=== PATIENT | female | born 1955 | race Caucasian/White ===

== ENCOUNTER 2018-03-11 02:20 | Outpatient (CLI) | payer OTHER, SELFPAY ==
[2018-03-11 12:55] LABS: HCT 42.4 % (36.0-46.0); HGB 14.2 g/dL (12.0-15.5); Mean Corp. HGB Concentration 33.5 g/dL (32.0-36.0); Mean Corpuscular Volume 98.6 fL (80-95); Mean Platelet Volume 9.7 fL (8.0-11.0); Platelet Count 283 x1000/uL (130-400); RBC Distribution Width 12.9 % (11.7-14.6); White Blood Cell Count 7.23 k/cumm (4.4-10.8)
[2018-03-11 13:24] LABS: COMMENT (LAB VIEW ONLY) 149.29 mg/dL
[2018-03-11 13:34] LABS: ALT 53 U/L (12-78); AST 43 U/L (15-37); Albumin 3.6 g/dL (3.4-5.0); Alkaline Phosphatase 108 U/L (46-116); Anion Gap 12.9 mmol/L (3-11); BUN 17 mg/dL (7-18); Bilirubin, Total 0.6 mg/dL (0.2-1.0); CO2 24.1 mmol/L (21.0-32.0); CREATININE 1.19 mg/dL (0.55-1.02); Calcium 9.2 mg/dL (8.5-10.1); Chloride 101 mmol/L (98-107); Cholesterol 304 mg/dL (50-200); Estimated GFR 45.81 (mL/min/1.73m2); Ferritin 200 ng/mL (8-388); Glucose 145 mg/dL (70-100); HDL Cholesterol 36 mg/dL (40-60); LDL CHOLESTEROL 232 mg/dL (<100); Potassium 4.6 mmol/L (3.5-5.1); Sodium 138 mmol/L (136-145); TSH (W/Ref FT4) 2.45 uIU/mL (0.358-3.74); Total Protein 7.2 g/dL (6.4-8.2); Triglyceride 165 mg/dL (30-150)
[2018-03-11 14:02] LABS: Hemoglobin A1C 6.3 % (4.5-6.2)
== END 2018-03-11 02:40 ==
LOC: LOS 02:20
PROVIDERS: PCP Family Medicine; Visit Provider Family Medicine
DX: E11.9 Type 2 diabetes mellitus without complications (principal); E78.5 Hyperlipidemia, unspecified; I10 Essential (primary) hypertension; R79.89 Other specified abnormal findings of blood chemistry
CPT/HCPCS: 36415; 80053; 80061; 83721; 85027; 82043; 82570; 82728; 83036; 84443

== ENCOUNTER 2018-03-11 08:18 | Outpatient (CLI) | payer OTHER, SELFPAY ==
--- NOTE | 2018-03-11 08:48 | DI.US_ITS ---
SYMPTOMS/DIAGNOSIS: HEMOCHROMATOSIS, E83.119, ELEVATED FERRITIN, R79.89, ALCOHOLISM ABDOMINAL ULTRASOUND: The liver appears within normal limits in size with a mildly heterogenous echotexture. No focal lesion identified. Note is made of cholelithiasis with multiple small mobile gallstones. No gallbladder wall thickening or biliary dilatation identified. The pancreas is poorly visualized. The kidneys are unremarkable in appearance except for small incidental bilateral renal cysts. No evidence of hydronephrosis or nephrolithiasis. CONCLUSION: Cholelithiasis, no other significant findings.
== END 2018-03-11 08:38 ==
PROVIDERS: PCP Family Medicine; Visit Provider Family Medicine
DX: E83.119 Hemochromatosis, unspecified (principal); R79.89 Other specified abnormal findings of blood chemistry; F10.20 Alcohol dependence, uncomplicated; K80.20 Calculus of gallbladder without cholecystitis without obstruction
CPT/HCPCS: 76700

== ENCOUNTER 2018-05-20 02:32 | Outpatient (CLI) | payer OTHER, SELFPAY ==
[2018-05-20 13:08] LABS: HGB 14.3 g/dL (12.0-15.5); Mean Corpuscular Hemoglobin 32.7 pg (27.0-33.0); Mean Corpuscular Volume 96.1 fL (80-95); Mean Platelet Volume 9.9 fL (8.0-11.0); Platelet Count 175 x1000/uL (130-400); RBC 4.37 m/cumm (4.00-5.20); RBC Distribution Width 13.7 % (11.7-14.6); White Blood Cell Count 4.86 k/cumm (4.4-10.8)
[2018-05-20 13:17] LABS: Hemoglobin A1C 6.4 % (4.5-6.2)
[2018-05-20 13:58] LABS: ALT 82 U/L (12-78); AST 100 U/L (15-37); Albumin 3.9 g/dL (3.4-5.0); Alkaline Phosphatase 73 U/L (46-116); Anion Gap 13.7 mmol/L (3-11); BUN 29 mg/dL (7-18); Bilirubin, Total 0.5 mg/dL (0.2-1.0); CO2 23.3 mmol/L (21.0-32.0); CREATININE 1.28 mg/dL (0.55-1.02); Calcium 9.7 mg/dL (8.5-10.1); Chloride 98 mmol/L (98-107); Estimated GFR 42.12 (mL/min/1.73m2); GGT 309 U/L (5-55); Glucose 158 mg/dL (70-100); Potassium 4.1 mmol/L (3.5-5.1); Sodium 135 mmol/L (136-145); Total Protein 7.4 g/dL (6.4-8.2)
== END 2018-05-20 02:52 ==
PROVIDERS: PCP Family Medicine; Visit Provider Family Medicine
DX: I10 Essential (primary) hypertension (principal); E78.5 Hyperlipidemia, unspecified; E11.9 Type 2 diabetes mellitus without complications
CPT/HCPCS: 36415; 80053; 85027; 82977; 83036

== ENCOUNTER 2018-06-06 00:23 | Outpatient (CLI) | payer OTHER, SELFPAY ==
--- NOTE | 2018-06-06 12:24 | DI.MAMMO_ITS ---
SYMPTOMS/DIAGNOSIS: SCREENING, Z12.31 MAMMOGRAMS: Mammograms were interpreted according to the usual protocol including computer analysis with CAD system, tomosynthesis and C view imaging. The breast tissue is primarily of fatty radiodensity. There is no mass. There are no suspicious calcifications. Small nodular densities appear stable when compared with the previous images. SUMMARY: No evidence of malignancy, category 1. Yearly screening mammography is recommended. Breast density category A. MQSA ASSESSMENT OF FINDINGS: Negative. Category 1. Patient will receive a letter notifying them of these results. BI-RAD category A. The breasts are almost entirely fatty.
== END 2018-06-06 00:43 ==
PROVIDERS: PCP Family Medicine; Visit Provider Family Medicine
DX: Z12.31 Encounter for screening mammogram for malignant neoplasm of breast (principal)
CPT/HCPCS: 77063; 77067

== ENCOUNTER 2018-10-09 01:30 | Outpatient (CLI) | payer OTHER, SELFPAY ==
[2018-10-09 11:05] LABS: HCT 39.9 % (36.0-46.0); HGB 14.2 g/dL (12.0-15.5); Mean Corp. HGB Concentration 35.6 g/dL (32.0-36.0); Mean Corpuscular Hemoglobin 32.3 pg (27.0-33.0); Mean Corpuscular Volume 90.9 fL (80-95); Mean Platelet Volume 9.5 fL (8.0-11.0); Platelet Count 220 x1000/uL (130-400); RBC 4.39 m/cumm (4.00-5.20); RBC Distribution Width 12.5 % (11.7-14.6); White Blood Cell Count 6.27 k/cumm (4.4-10.8)
[2018-10-09 11:16] LABS: Bilirubin Negative (Negative); Blood Negative (Negative); Clarity Clear; Glucose Negative (Negative); Ketones Negative (Negative); Leukocyte Esterase Negative (Negative); Nitrite Negative (Negative); Specific Gravity 1.015 (1.005-1.025); Urobilinogen 0.2 EU/dL (Up TO 0.2); pH 6.5 (5-8)
[2018-10-09 12:03] LABS: ALT 27 U/L (12-78); AST 21 U/L (15-37); Albumin 3.9 g/dL (3.4-5.0); Alkaline Phosphatase 77 U/L (46-116); Anion Gap 11.1 mmol/L (3-11); BUN 19 mg/dL (7-18); Bilirubin, Total 0.4 mg/dL (0.2-1.0); CO2 24.9 mmol/L (21.0-32.0); CREATININE 1.07 mg/dL (0.55-1.02); Chloride 101 mmol/L (98-107); Cholesterol 289 mg/dL (50-200); Estimated GFR 51.63 (mL/min/1.73m2); Ferritin 169 ng/mL (8-388); GGT 93 U/L (5-55); Glucose 117 mg/dL (70-100); HDL Cholesterol 41 mg/dL (40-60); LDL CHOLESTEROL 217 mg/dL (<100); Potassium 3.8 mmol/L (3.5-5.1); Sodium 137 mmol/L (136-145); Total Protein 7.3 g/dL (6.4-8.2); Triglyceride 105 mg/dL (30-150)
[2018-10-09 15:23] LABS: Iron 116 ug/dL (50-175)
[2018-10-10 08:20] LABS: Vitamin D 25 Total 111.9 ng/ml (30-100)
== END 2018-10-09 01:50 ==
PROVIDERS: PCP Family Medicine; Visit Provider Family Medicine
DX: E55.9 Vitamin D deficiency, unspecified (principal); E78.5 Hyperlipidemia, unspecified; E83.119 Hemochromatosis, unspecified; I10 Essential (primary) hypertension; R74.8 Abnormal levels of other serum enzymes; R94.5 Abnormal results of liver function studies; R79.89 Other specified abnormal findings of blood chemistry
CPT/HCPCS: 36415; 80053; 80061; 82306; 83721; 85027; 81003; 82728; 82977; 83036; 83540

== ENCOUNTER 2019-02-05 02:28 | Outpatient (CLI) | payer OTHER, SELFPAY ==
[2019-02-05 12:33] LABS: Hemoglobin A1C 7.1 % (4.5-6.2)
== END 2019-02-05 02:48 ==
PROVIDERS: PCP Family Medicine; Visit Provider Family Medicine
DX: E11.9 Type 2 diabetes mellitus without complications (principal)
CPT/HCPCS: 36415; 83036

== ENCOUNTER 2019-02-27 01:07 | Outpatient (CLI) | payer OTHER, SELFPAY ==
--- NOTE | 2019-02-27 10:58 | DI.RAD_ITS ---
EXAM: XR SHOULDER RT COMPLETE 2+V INDICATION: right shoulder pain, M79.601 COMPARISON: No exams were available for comparison TECHNIQUE: 2D digital imaging was performed. FINDINGS: The bony structures are normally mineralized. The glenohumeral joint is intact. There are minimal deg enerative changes involving the AC joint.
== END 2019-02-27 01:27 ==
PROVIDERS: PCP Family Medicine; Visit Provider Family Medicine
DX: M25.511 Pain in right shoulder (principal)
CPT/HCPCS: 73030

== ENCOUNTER 2019-05-29 01:19 | Outpatient (CLI) | payer OTHER, SELFPAY ==
[2019-05-29 09:25] LABS: Hemoglobin A1C 6.8 % (4.5-6.2)
[2019-05-29 09:38] LABS: ALT 25 U/L (14-59); AST 16 U/L (15-37); Albumin 3.9 g/dL (3.4-5.0); Alkaline Phosphatase 83 U/L (46-116); Anion Gap 10.7 mmol/L (3-11); BUN 31 mg/dL (7-18); Bilirubin, Total 0.3 mg/dL (0.2-1.0); CO2 24.3 mmol/L (21.0-32.0); CREATININE 1.33 mg/dL (0.55-1.02); Calcium 9.4 mg/dL (8.5-10.1); Chloride 104 mmol/L (98-107); Estimated GFR 40.17 (mL/min/1.73m2); Ferritin 206 ng/mL (8-252); GGT 57 U/L (5-55); Glucose 140 mg/dL (74-106); Potassium 4.5 mmol/L (3.5-5.1); Sodium 139 mmol/L (136-145); Total Protein 7.1 g/dL (6.4-8.2)
== END 2019-05-29 01:39 ==
PROVIDERS: PCP Family Medicine; Visit Provider Family Medicine
DX: I10 Essential (primary) hypertension (principal); E11.9 Type 2 diabetes mellitus without complications; R79.89 Other specified abnormal findings of blood chemistry; R94.5 Abnormal results of liver function studies
CPT/HCPCS: 36415; 80053; 82728; 82977; 83036

== ENCOUNTER 2019-07-09 08:37 | Outpatient (CLI) | payer BC, SELFPAY ==
--- NOTE | 2019-07-09 11:15 | DI.RAD_ITS ---
EXAM: XR LUMBAR SPINE COMPLETE INDICATION: LBP, left leg pain, acute lt sided low back pain with left sided sciatica COMPARISON: No exams were available for comparison TECHNIQUE: 2D digital imaging was performed. FINDINGS: There are severe degenerative disc changes seen from T12-L1 through L4-5. There is a dextroscoliosi s secondary to asymmetric degenerative changes. Facet degenerative changes are also present greatest in the lower lumbar region. No compression fractures, spondylolysis or spondylolisthesis is seen. Degenerative changes of the SI joints and mild degenerative changes of the hip joints are also seen. IMPRESSION: Multilevel advanced degenerative disc changes. Scoliosis.
== END 2019-07-09 08:57 ==
PROVIDERS: PCP Family Medicine; Visit Provider Family Medicine
DX: M54.42 Lumbago with sciatica, left side (principal); M51.16 Intervertebral disc disorders with radiculopathy, lumbar region; M47.26 Other spondylosis with radiculopathy, lumbar region
CPT/HCPCS: 72110

== ENCOUNTER 2019-11-10 03:28 | Outpatient (CLI) | payer MEDICARE, SELFPAY ==
[2019-11-10 07:26] LABS: HCT 42.4 % (36.0-46.0); HGB 15.1 g/dL (12.0-15.5); Mean Corp. HGB Concentration 35.6 g/dL (32.0-36.0); Mean Corpuscular Hemoglobin 31.8 pg (27.0-33.0); Mean Corpuscular Volume 89.3 fL (80-95); Mean Platelet Volume 9.3 fL (8.0-11.0); Platelet Count 263 x1000/uL (130-400); RBC 4.75 m/cumm (4.00-5.20); RBC Distribution Width 12.8 % (11.7-14.6); White Blood Cell Count 8.16 k/cumm (4.4-10.8)
[2019-11-10 08:03] LABS: Hemoglobin A1C 7.2 % (3.8-5.6)
[2019-11-10 08:21] LABS: ESR 24 mm/hr (0-30)
[2019-11-10 08:23] LABS: ALT 26 U/L (14-59); AST 30 U/L (15-37); Albumin 4.1 g/dL (3.4-5.0); Alkaline Phosphatase 92 U/L (46-116); Anion Gap 11.2 mmol/L (3-11); BUN 21 mg/dL (7-18); Bilirubin, Total 0.5 mg/dL (0.2-1.0); CO2 24.8 mmol/L (21.0-32.0); CREATININE 1.27 mg/dL (0.55-1.02); Calcium 9.8 mg/dL (8.5-10.1); Chloride 98 mmol/L (98-107); Estimated GFR 42.23 (mL/min/1.73m2); Glucose 164 mg/dL (74-106); Potassium 4.1 mmol/L (3.5-5.1); Sodium 134 mmol/L (136-145); Total Protein 7.5 g/dL (6.4-8.2)
[2019-11-10 08:28] LABS: GGT 94 U/L (5-55)
== END 2019-11-10 03:48 ==
PROVIDERS: PCP Family Medicine; Visit Provider Family Medicine
DX: D64.9 Anemia, unspecified (principal); R74.8 Abnormal levels of other serum enzymes; R79.89 Other specified abnormal findings of blood chemistry; E11.9 Type 2 diabetes mellitus without complications; M79.10 Myalgia, unspecified site
CPT/HCPCS: 36415; 80053; 85027; 85652; 82977; 83036

== ENCOUNTER 2019-12-18 00:17 | Outpatient (CLI) | payer MEDICARE, SELFPAY ==
--- NOTE | 2019-12-18 08:00 | DI.MAMMO_ITS ---
EXAM: MAMMO SCREENING CLINICAL HISTORY: screening, Z12.39 TECHNIQUE: Mammograms were interpreted according to the usual protocol including computer analysis w [email or web address] CAD system, tomosynthesis and C-view imaging. COMPARISON: 2011 through 2018 FINDINGS: The breasts are composed of mainly fatty density , Breast Density category A. No suspicious masses or suspicious microcalcifications are seen. Vascular calcifications are noted. No skin thickening or abnormal axillary lymph nodes are seen. There has been no significant change from prior exams. IMPRESSION: BI-RADS Category 1, negative. Yearly screening mammography is recommended. Breast Density Category A, fatty density.
== END 2019-12-18 00:37 ==
PROVIDERS: PCP Family Medicine; Visit Provider Family Medicine
DX: Z12.31 Encounter for screening mammogram for malignant neoplasm of breast (principal)
CPT/HCPCS: 77063; 77067

== ENCOUNTER 2020-05-18 04:36 | Outpatient (CLI) | payer MEDICARE, SELFPAY ==
[2020-05-18 11:21] LABS: COMMENT (LAB VIEW ONLY) 107.73 mg/dL
[2020-05-18 11:23] LABS: ALT 20 U/L (14-59); AST 16 U/L (15-37); Albumin 3.8 g/dL (3.4-5.0); Alkaline Phosphatase 72 U/L (46-116); Anion Gap 10.9 mmol/L (3-11); BUN 22 mg/dL (7-18); Bilirubin, Total 0.5 mg/dL (0.2-1.0); CO2 26.1 mmol/L (21.0-32.0); CREATININE 1.31 mg/dL (0.55-1.02); Calcium 9.1 mg/dL (8.5-10.1); Chloride 100 mmol/L (98-107); Estimated GFR 40.75 (mL/min/1.73m2); GGT 69 U/L (5-55); Glucose 187 mg/dL (74-106); Potassium 4.2 mmol/L (3.5-5.1); Sodium 137 mmol/L (136-145); Total Protein 6.9 g/dL (6.4-8.2)
[2020-05-19 09:57] LABS: Hepatitis C Ab w Rflx HCV PCR Negative (Negative)
== END 2020-05-18 04:56 ==
PROVIDERS: PCP Family Medicine; Visit Provider Family Medicine
DX: E11.9 Type 2 diabetes mellitus without complications (principal); E78.1 Pure hyperglyceridemia; I10 Essential (primary) hypertension; R94.8 Abnormal results of function studies of other organs and systems; R94.5 Abnormal results of liver function studies; K85.20 Alcohol induced acute pancreatitis without necrosis or infection
CPT/HCPCS: 36415; 80053; 86803; 82043; 82570; 82977

== ENCOUNTER 2020-06-07 09:10 | Outpatient (CLI) | payer MEDICARE, SELFPAY ==
[2020-06-08 19:19] LABS: COVID-19 RT-PCR UVMMC Result Negative (Negative)
== END 2020-06-07 09:30 ==
PROVIDERS: PCP Family Medicine; Visit Provider Family Medicine
DX: Z20.828 Contact with and (suspected) exposure to other viral communicable diseases (principal)
CPT/HCPCS: U0003

== ENCOUNTER 2020-11-05 01:58 | Outpatient (CLI) | payer MEDICARE, SELFPAY ==
[2020-11-05 09:32] LABS: ALT 26 U/L (14-59); AST 17 U/L (15-37); Albumin 3.7 g/dL (3.4-5.0); Alkaline Phosphatase 75 U/L (46-116); Anion Gap 10.6 mmol/L (3-11); BUN 16 mg/dL (7-18); Bilirubin, Total 0.4 mg/dL (0.2-1.0); CO2 25.4 mmol/L (21.0-32.0); CREATININE 1.2 mg/dL (0.55-1.02); Calcium 9.4 mg/dL (8.5-10.1); Chloride 103 mmol/L (98-107); Estimated GFR 44.95 (mL/min/1.73m2); Glucose 148 mg/dL (74-106); Potassium 4.1 mmol/L (3.5-5.1); Sodium 139 mmol/L (136-145); Total Protein 7.1 g/dL (6.4-8.2)
[2020-11-05 09:52] LABS: Hemoglobin A1C 6.7 % (<5.7)
== END 2020-11-05 01:59 | disposition home or self-care (01) ==
LOC: LBO 01:58
PROVIDERS: PCP Family Medicine; Visit Provider Family Medicine
DX: E78.5 Hyperlipidemia, unspecified (principal); R74.8 Abnormal levels of other serum enzymes; R94.5 Abnormal results of liver function studies; E11.9 Type 2 diabetes mellitus without complications
CPT/HCPCS: 36415; 80053; 83036

== ENCOUNTER 2020-11-11 10:03 | Outpatient (REF) | payer MEDICARE, SELFPAY ==
--- NOTE | 2020-11-11 09:45 | PAPFT_PTH ---
PATIENT: Yareli Perez LOC: [facility] U#:[id number] AGE/SX: 65/F ROOM: RE11/11/[address]: Nhi Sawant MD, DC : 1955 BED: DIS: 11/11/2020 SPEC #: [id number] RECD: 11/11/20 12:52 STATUS: SHIN EVE #: [id number] ROXIE: 11/11/20 09:[address]: Nhi Sawant DEPT: [facility] Cytology RECD BY: Tricia Briones Tissues: 1 - CX/ENDOCX FOR PAP SMEARS Procedures: PAP THIN PREP/UVM Screening HPV DNA PROBE Comments: [id number]
== END 2020-11-11 10:04 | disposition home or self-care (01) ==
LOC: LBN 10:03
PROVIDERS: PCP Family Medicine; Visit Provider Family Medicine
DX: Z12.4 Encounter for screening for malignant neoplasm of cervix (principal); Z11.51 Encounter for screening for human papillomavirus (HPV); Z01.419 Encounter for gynecological examination (general) (routine) without abnormal findings
CPT/HCPCS: 88142; 87624

== ENCOUNTER 2020-12-20 01:53 | Outpatient (CLI) | payer MEDICARE, SELFPAY ==
--- NOTE | 2020-12-20 06:45 | DI.MAMMO_ITS ---
Exam(s) MAMMO SCREENING EXAM: MAMMO SCREENING CLINICAL HISTORY: screening,Z12.39. TECHNIQUE: Bilateral full field digital CC and MLO mammographic images were obtained with 3D tomosyn thesis and utilizing computer aided detection (CAD). COMPARISON: Prior mammograms dating back to 2011, the most recent being December 2019. FINDINGS: Two small benign-appearing nodules in the left breast are unchanged from prior studies and have the a ppearance of benign intramammary lymph nodes. There are no new spiculated masses nor malignant appearing microcalcification groups. There is no significant architectural distortion nor skin thickening-retraction. IMPRESSION: No radiographic evidence of malignancy. No significant change compared to prior studies listed above BI-RADS Category 1 - Negative Breast Density - Category A - Almost entirely fatty Breast density Category C or D implies that the patient has dense breast tissue. Dense breast tissue can make it harder to find cancer on a mammogram. Dense breast tissue is also associated with an incr eased risk of breast cancer. This information about the result of the mammogram report was provided to the patient to raise their awareness. Use this report when you speak with the patient about their risks for breast cancer, which includes their family history. At that time, you may recommend additional screening tests (Ultrasoun d or MRI) as these tests may add significant information. A negative radiographic report should not delay biopsy if a dominant or clinically suspicious mass is present. Up to ten percent of cancers are not identified on mammography. A negative report may reinforce clinical impression. Adenosis and dense breasts may obscure an underlying neoplasm. False positive reports average 6 to 10%. Patient will receive a letter notifying them of these results.
== END 2020-12-20 02:13 ==
PROVIDERS: PCP Family Medicine; Visit Provider Family Medicine
DX: Z12.31 Encounter for screening mammogram for malignant neoplasm of breast (principal); R92.8 Other abnormal and inconclusive findings on diagnostic imaging of breast
CPT/HCPCS: 77063; 77067

== ENCOUNTER → 2021-05-09 08:56 | Outpatient (BNVA) | payer MEDICARE, SELFPAY | PROVIDERS: PCP Family Medicine; Referring Provider Family Medicine; Visit Provider Surgery | DX: Z12.11 Encounter for screening for malignant neoplasm of colon (principal); Z86.010 Personal history of colon polyps; I10 Essential (primary) hypertension | CPT/HCPCS: 99242 ==

== ENCOUNTER 2021-05-11 02:23 | Outpatient (CLI) | payer MEDICARE, SELFPAY ==
[2021-05-11 12:27] LABS: Source Nasal/Nares
[2021-05-11 15:11] LABS: COVID-19 PCR Negative (Negative)
== END 2021-05-11 02:24 | disposition home or self-care (01) ==
LOC: LBO 02:23
PROVIDERS: PCP Family Medicine; Visit Provider Surgery
DX: Z20.822 Contact with and (suspected) exposure to COVID-19 (principal)
CPT/HCPCS: 36415; 80053; 87635; 83540; 83550; 85025

== ENCOUNTER 2021-05-11 02:35 | Outpatient (CLI) | payer MEDICARE, SELFPAY ==
[2021-05-11 10:06] LABS: Abs Immature Grans 0.02 10^3/uL (0.0-0.06); Absolute Basophil Count 0.05 10^3/uL (0.0-0.2); Absolute Eosinophil Count 0.26 10^3/uL (0.0-0.7); Absolute Lymphocyte Count 2.46 10^3/uL (1.2-3.4); Absolute Monocyte Count 0.43 10^3/uL (0.1-0.8); Absolute Neutrophil Count 3.94 10^3/uL (1.2-6.7); Basophils % 0.7; Eosinophils % 3.6; HCT 39.1 % (36.0-46.0); HGB 13.6 g/dL (11.2-15.7); Immature Grans % 0.3; Lymphocytes % 34.4; MCH 31.3 pg (27.0-33.0); MCHC 34.8 % (32.0-36.0); MCV 90.1 fL (80-95); MPV 9.7 fL (8.0-11.0); Nucleated RBC 0 %; Platelet Count 251 10^3/uL (130-400); RBC 4.34 10^6/uL (3.93-5.22); RDW 11.8 % (11.7-14.6); RDW-SD 39.2 fL; WBC 7.16 10^3/uL (4.4-10.8)
[2021-05-11 11:06] LABS: Iron 117 ug/dL (50-170); Total Iron Binding Capacity 357 ug/dL (250-450)
[2021-05-11 11:09] LABS: ALT 24 U/L (14-59); AST 18 U/L (15-37); Albumin 3.8 g/dL (3.4-5.0); Alkaline Phosphatase 78 U/L (46-116); Anion Gap 10.4 mmol/L (3-11); BUN 24 mg/dL (7-18); Bilirubin, Total 0.3 mg/dL (0.2-1.0); CO2 25.6 mmol/L (21.0-32.0); CREATININE 1.1 mg/dL (0.55-1.02); Calcium 9.4 mg/dL (8.5-10.1); Chloride 101 mmol/L (98-107); Estimated GFR 49.69 (mL/min/1.73m2); Glucose 144 mg/dL (74-106); Potassium 4.4 mmol/L (3.5-5.1); Sodium 137 mmol/L (136-145)
== END 2021-05-11 02:36 | disposition home or self-care (01) ==
LOC: LBO 02:35
PROVIDERS: PCP Family Medicine; Visit Provider Surgery
DX: E11.9 Type 2 diabetes mellitus without complications; I10 Essential (primary) hypertension; E83.119 Hemochromatosis, unspecified; D12.6 Benign neoplasm of colon, unspecified; D64.9 Anemia, unspecified; R79.89 Other specified abnormal findings of blood chemistry; M79.662 Pain in left lower leg
CPT/HCPCS: 36415; 80053; 83540; 83550; 85025

== ENCOUNTER 2021-05-13 07:59 | Day surgery (SDC) | payer MEDICARE, SELFPAY ==
--- NOTE | 2021-05-12 17:14 | W.COLOREPORT ---
Colonoscopy Report Date of procedure: 05/13/21 Pre-op diagnosis general: Villous & Serrated adenoma in rectum 2018 Surgeon: Julisa Mcintosh Anesthesia Type: General:No Airway Prep: Miralax/Dulcolax Procedure Description: After informed consent was obtained the patient was taken to the procedure room and placed in a left decubitous position. Monitors were applied and a time out was done. The patients name, date of , procedure, allergies to medications and metal in their body was reviewed. The patient was then sedated. Once sedated and comfortable a rectal exam was done. External exam was normal. Internal exam revealed a normal sphincter tone and no palpable masses. The scope was then introduced and retrofelexed. no internal hemorrhoids were identified. The scope was then advanced to the cecum w/out difficulty. The TI and appendiceal orifice were identified. The prep was good. The scope was then slowly retracted over 10 minutes back into the rectum. They patient's has no diverticula or AVMs. She does have a recurrent polyp in the rectum x2. This is approximately .75cm. It is flat. It is removed with hot snare. Specimen is retrieved and no bleeding is noted. She does have another 5 mm adenoma. This is obliterated with cautery. Patient tolerated procedure well the scope was removed and the patient was woken up and taken back to Same day surgery in stable condition. The patient tolerated the procedure well and there were no immediate complications. Follow up: The patient should follow up in 3-5 years unless they develop changes in bowel habits or other new gastrointestinal complaints.
--- NOTE | 2021-05-12 17:15 | PDOC.DSDIS_ITS ---
Discharge Plan Disposition Patient Disposition: HOME Condition: Good Discharge Details Reason For Visit: colon scope Attending Provider: Julisa Mcintosh Primary Care Provider: Nhi Sawant Home Meds and New Rx's Prescriptions: Continued ibuprofen 200 mg tablet 800 mg PO Q6H PRNRF: 0 lorazepam 1 mg tablet 1 mg PO QHS PRN (Reason: sleep) Qty: 30 RF: 0 multivitamin [Daily Multi-Vitamin] 1 EACH tablet 1 tab PO DAILY RF: 0 thiamine mononitrate (vit B1) [Vitamin B-1 (mononitrate)] 100 MG tablet 1 tab PO DAILY RF: 0 VITAMIN D3 2,000 UNIT capsule 2,000 unit PO DAILY RF: 0 metoprolol succinate 50 mg tablet extended release 24 hr 50 mg PO DAILY Qty: 90 RF: 5 spironolactone 50 mg tablet 50 mg PO DAILY Qty: 90 RF: 4 folic acid 1 mg tablet 1 mg PO DAILY Qty: 90 RF: 5 Discontinued polyethylene glycol 3350 17 gram/dose powder 238 g PO ONCE Qty: 238 RF: 0 bisacodyl [Dulcolax (bisacodyl)] 5 mg tablet,delayed release (DR/EC) 5 mg PO ONCE Qty: 4 RF: 0 Discharge Instructions Additional Instructions: DSU Colonoscopy Post- Op Instructions Instructions for Everyone who is given Anesthesia: For your safety, please do the following for the next twenty-four (24) hours: *Do Not operate a motor vehicle (car, truck, motorcycle, etc.) *Do Not drink alcoholic beverages or use any recreational drugs for the first 24 hours or while taking pain medications. The medications in your body may have a reaction that can be dangerous. *Do Not make any important decisions or sign any important papers. Findings:recurrence of polyp. Follow up: Repeat in 3-5yrs My office will send a letter in 2 to 3 weeks time detailing as to what type of polyp it was, and when we want you to repeat the colonoscopy. 1. No lifting over 20 pounds or strenuous activity for the first 24 hours after your procedure. After 24 hours there are no restrictions on your activity but you may feel fatigued for a few days. 2. After you arrive home you may have a light meal and return to your normal diet as you can tolerate it without feeling sick to your stomach. 3. You may have a bloated, gaseous feeling in your belly (abdomen) after a colonoscopy. Passing gas and belching will help. Walking or lying down on your left side with your knees flexed may relieve the discomfort. Call the office at [phone] (Office) or [phone] (Hospital) right away if you notice any of the following: a.Vomiting of blood or ?coffee ground stools?. b.Rectal bleeding 1Tbsp, blood clots or continuous bleeding. c.Severe belly (abdominal) pain. d.A hard distended belly (abdomen) and an inability to pass gas. 4. Please don?t expect to have a normal BM (bowel movement) for 2-3 days after your procedure. 5. If there are questions regarding the findings of your procedure, please contact your doctor 6. If you are unable to contact your doctor with a problem, contact the hospital at [phone]. 7. Continue all your regular medications unless directed otherwise. I understand the above instructions and have no questions. Signature of Patient or Adult Escort Name of Responsible Adult Escort Signature of Nurse Date/Time Activity:: see above Diet:: see above Discharge Orders Discharge Orders: Discharge Order (Routine); Ordered 05/12/21 Ordered By: Julisa Mcitnosh DS: Diagnosis Discharge Diagnosis (1) Alcohol abuse, in remission: Status: Acute (2) Essential hypertension: Status: Acute (3) Diabetes mellitus: Status: Acute (4) Hypertriglyceridemia: Status: Chronic (5) Hyperlipidemia: Status: Chronic (6) Glaucoma: Status: Chronic (7) Adenoma of colon: Status: Chronic
[2021-05-13 08:27] VITALS: BP 148/89; PULSE 61; RESP 16; TEMP 36.9; O2SAT 99
--- NOTE | 2021-05-13 08:33 | W.ANESPRE ---
General Info Date of Service Date Performed: 05/13/21 Height: 5 ft Weight: 79.8 kg Body Mass Index (BMI): 34.3 Surgical Procedure: Operation Date: 05/13/21 09:05 Proposed Procedures Side Surgeon eligio Mcintosh, Meds Allergies and Home Medications Allergies Allergy/AdvReac Type Severity Reaction Status Date / Time No Known Allergies Allergy Verified 05/13/21 08:13 Home Medication Medication Instructions Recorded multivitamin [Daily Multi-Vitamin] 1 tab PO DAILY 09/11/13 thiamine mononitrate (vit B1) 1 tab PO DAILY 09/11/13 [Vitamin B-1 (mononitrate)] Vitamin D3 2,000 unit PO DAILY 10/11/15 lorazepam 1 mg tablet 1 mg PO QHS PRN #30 tab 10/14/18 ibuprofen 200 mg tablet 800 mg PO Q6H PRN tab 07/08/19 metoprolol succinate 50 mg 50 mg PO DAILY #90 tab 07/27/20 tablet,extended release 24 hr spironolactone 50 mg tablet 50 mg PO DAILY #90 tab 07/27/20 folic acid 1 mg tablet 1 mg PO DAILY #90 tab-cap 08/23/20 Current Visit Medications: Current Medications Generic Name Dose Route Start Last Admin Trade Name Freq PRN Reason Stop Dose Admin Hyoscyamine Sulfate 0.125 mg 05/12/21 17:12 Hyoscyamine 0.125 Mg Sl/Oral/Chew SL DIRECTED PRN Ringer's Solution 1,000 mls @ 80 mls/hr 05/13/21 06:00 IV 06/11/21 23:59 [facility] IV Miscellaneous Supplies 1 each 05/13/21 06:00 Iv Access IV 06/11/21 23:59 DIRECTED MARTIN Ondansetron HCl 4 mg 05/12/21 17:12 Ondansetron 4 Mg/2 Ml Vial IVP Q4H PRN PRN Nausea / Vomiting Sodium Chloride 0 ml 05/13/21 06:00 Normal Saline Flush 10 Ml Syr IV 06/11/21 23:59 PRN PRN Sodium Chloride 0 ml 05/13/21 06:00 Normal Saline 10 Ml Vial IJ 06/11/21 23:59 DIRECTED PRN Sterile Water 0 ml 05/13/21 06:00 Water,Injection,Sterile 10 Ml Vial IJ 06/11/21 23:59 DIRECTED PRN PFSH Active Problems Active Problems: Problem Status Onset Code Alcohol abuse, in remission F10.11 Essential hypertension Diabetes mellitus Pain of left calf M79.662 Annual physical exam Z00.00 Increased body mass index R63.8 Hypertriglyceridemia 02/04/13 E78.1 Hyperlipidemia E78.5 Headache R51 Glaucoma H40.9 Elevated serum GGT level 07/20/15 R74.8 Elevated liver function tests 07/20/15 R94.5 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 Anxiety 07/08/15 F41.9 Adenoma of colon 11/06/17 D12.6 Essential hypertension 09/10/13 I10 Diabetes mellitus 07/20/15 E11.9 Medical History Active Problem List Alcohol abuse, in remission (Acute) Essential hypertension (Acute) Diabetes mellitus (Acute) Pain of left calf (Acute) Annual physical exam (Acute) Increased body mass index (Chronic) Hypertriglyceridemia (Chronic 02/04/13) Hyperlipidemia (Chronic) Headache (Chronic) Glaucoma (Chronic) Elevated serum GGT level (Chronic 07/20/15) Elevated liver function tests (Chronic 07/20/15) Carcinoma in situ of uterine cervix (Chronic) Anxiety (Chronic 07/08/15) Adenoma of colon (Chronic 11/06/17) Essential hypertension (Chronic 09/10/13) Diabetes mellitus (Chronic 07/20/15) Medical History Alcohol induced acute pancreatitis Annual physical exam (08/14/17) Elevated ferritin (07/15/15) hemochromotosis tests negative Hemochromatosis (07/15/15) work up in progress History of tobacco use Quit 1988 History of tobacco use Right arm pain Surgical History Surgical History Cervical Conization/LEEP (~1979) section Colonoscopy - [facility] [place] ([place]/06/17) H/O section x2 History of section History of oophorectomy, unilateral right History of unilateral oophorectomy Oophrectomy, Right Status post LEEP (loop electrosurgical excision procedure) of cervix and cervical conization Status post LEEP (loop electrosurgical excision procedure) of cervix Tobacco Smoking/Tobacco Use Status: Former Tobacco Use Tobacco: How many years used: 17 Passive smoking exposure: Yes Second hand exposure: Yes Alcohol Alcohol Intake: former Substance Use Substance use: Current Sobriety Substance use type: does not use and former substance user Vital Signs and Lab Results Vital Signs Most Recent Vital Signs in EMR: Most Recent Vital Signs Temp Pulse Resp BP Pulse Ox 36.9 C 61 16 148/89 H 99 05/13/21 08:27 05/13/21 08:27 05/13/21 08:27 05/13/21 08:27 05/13/21 08:27 Lab Results Blood Type / Crossmatch: No Data to Display Complete Blood Count: White Blood Count 7.16 10^3/uL (4.4-10.8) 05/11/21 09:50 05/11/21 Red Blood Count 4.34 10^6/uL (3.93-5.22) 05/11/21 09:50 05/11/21 Hemoglobin 13.6 g/dL (11.2-15.7) 05/11/21 09:50 05/11/21 Hematocrit 39.1 % (36.0-46.0) 05/11/21 09:50 05/11/21 Platelet Count 251 10^3/uL (130-400) 05/11/21 09:50 05/11/21 Complete Metabolic Panel: Sodium Level 137 mmol/L (136-145) 05/11/21 09:50 05/11/21 Potassium Level 4.4 mmol/L (3.5-5.1) 05/11/21 09:50 05/11/21 Chloride Level 101 mmol/L (98-107) 05/11/21 09:50 05/11/21 Carbon Dioxide Level 25.6 mmol/L (21.0-32.0) 05/11/21 09:50 05/11/21 Blood Urea Nitrogen 24 mg/dL (7-18) H 05/11/21 09:50 05/11/21 Creatinine 1.1 mg/dL (0.55-1.02) H 05/11/21 09:50 05/11/21 Estimated GFR/1.73 m2 49.69 (mL/min/1.73m2) 05/11/21 09:50 05/11/21 Calcium Level 9.4 mg/dL (8.5-10.1) 05/11/21 09:50 05/11/21 Albumin 3.8 g/dL (3.4-5.0) 05/11/21 09:50 05/11/21 Glucose Level 144 mg/dL (74-106) H 05/11/21 09:50 05/11/21 Liver Function Panel: Alanine Aminotransferase (ALT/SGPT) 24 U/L (14-59) 05/11/21 09:50 05/11/21 Aspartate Amino Transf (AST/SGOT) 18 U/L (15-37) 05/11/21 09:50 05/11/21 Coagulation Panel: No Data to Display Cardiac Panel: No Data to Display Arterial Blood Gas: No Data to Display Venous Blood Gas: No Data to Display Pancreas Panel: No Data to Display Thyroid Panel: No Data to Display Infectious Disease: Coronavirus (COVID-19)(PCR) Negative (Negative) 05/11/21 09:25 05/11/21 Coronavirus 2019 Source Nasal/Nares 05/11/21 09:25 05/11/21 Blood Cultures: No Data to Display Toxicology Panel: No Data to Display Imaging and Studies Imaging and Studies Echocardiogram Summary: 2011: LVEF 68%, trace TR/MR. Anesthesia Assessment and Plan Anesthesia History Personal History: No History of Anesthesia Complications Family History: No Family History of Anesthesia Complications Exercise Tolerance Exercise Tolerance: Metabolic Equivalents<4 Cardiac & Pulmonary Exam Cardiac Exam: Normal S1/S2 Heart Sounds Pulmonary Exam: Clear Bilateral Breath Sounds Implantable Cardiac Device Does patient have a Pacemaker or an ICD?: No Airway Exam Known Difficult Airway: No Mallampati Class: 2 Mouth Opening: Normal (> 3cm) Thyromental Distance: Greater than 3 cm Neck Range of Motion: Full ROM Neck Circumference: Thick Teeth Condition: Normal Dentition ASA Classification ASA Score: ASA 2 Emergency Case?: No NPO Status NPO Status: NPO Clears >2 hours, Solids >8 hours Anesthesia Plan Resuscitation Status: Full Code Anesthesia Technique: General Anesthesia Airway Planned: Natural Airway Monitors Used: Standard Monitors Preoperative Comments:: 65 yo female with history of colon polyps for colonoscopy. Sig PMHx: DM (pre), anxiety (lorazapam), HTN (metoprolol/spironolactone), former smoker, former EtOH/substance use. ECHO: 2010, LVEF 68%, trace TR/MR.
[2021-05-13 08:38] VITALS: BMI 34.3
[2021-05-13] MEDS: Lactated Ringers 1,000 ML 80 ML IV (08:40)
--- NOTE | 2021-05-13 09:12 | BOWEL_PTH ---
PATIENT: Yareli Perez LOC: [facility] U#:[id number] AGE/SX: 65/F ROOM: RE05/13/[address]: Julisa Mcintosh : 1955 BED: DIS: 05/13/2021 SPEC #: [id number] RECD: 05/13/21 09:27 STATUS: SHIN REQ #: [id number] ROXIE: 05/13/21 09:[address]: Julisa Mcintosh DEPT: Surgical Specimen RECD BY: Tricia Briones ENTERED: 05/13/21 09:28 SP TYPE: Bowel OTHR DR: Nhi Sawant MD, DC Tissues: 1 - BIOPSY BOWEL Procedures: GROSS AND MICRO LEVEL 4 Comments: [id number]
[2021-05-13 09:20] VITALS: BP 86/58; PULSE 62; RESP 16; TEMP 36.4; O2SAT 95
[2021-05-13 09:32] VITALS: BP 93/61; PULSE 54; RESP 16; TEMP 36.4; O2SAT 97
[2021-05-13 09:44] VITALS: BP 123/68; PULSE 55; RESP 16; TEMP 36.3; O2SAT 97
--- NOTE | 2021-05-13 10:31 | W.ANESPOSTOP ---
Postoperative Evaluation Date, Time and Location Date Performed: 05/13/21 Time Performed: 09:44 Patient Location: Day Surgery Unit Vital Signs Most Recent Imported Vital Signs: Most Recent Vital Signs Temp Pulse Resp BP Pulse Ox 36.3 C L 55 L 16 123/68 97 05/13/21 09:44 05/13/21 09:44 05/13/21 09:44 05/13/21 09:44 05/13/21 09:44 Pain Score Most Recent Pain Score: Most Recent Pain Score Pain Level 0 05/13/21 09:44 Assessment Mental Status: Awake (Alert & Oriented to Patient Baseline) Airway and Respiratory Function: Patent airway with normal (patient baseline) respiratory exam Cardiovascular Function: Hemodynamically Stable Hydration Status: Adequately Hydrated Nausea & Vomiting: No Nausea or Vomiting Pain: Pt. Denies Any Pain Peripheral Nerve Block: Patient did not receive a nerve block
== END 2021-05-13 10:19 | disposition home or self-care (01) ==
LOC: SUR 08:00
PROVIDERS: PCP Family Medicine; Visit Provider Surgery
PROC: 0DJD8ZZ Inspection of Lower Intestinal Tract, Via Natural or Artificial Opening Endoscopic (ICD-10-PCS; CPT 45378; principal; 2021-05-13 09:00)
DX: Z12.11 Encounter for screening for malignant neoplasm of colon (principal); D12.8 Benign neoplasm of rectum; Z86.010 Personal history of colon polyps; E11.9 Type 2 diabetes mellitus without complications; I10 Essential (primary) hypertension
CPT/HCPCS: 45385; 45384; 88305; J2001

== ENCOUNTER 2021-07-01 00:51 | Outpatient (CLI) | payer MEDICARE, SELFPAY ==
--- NOTE | 2021-07-01 06:30 | DI.US_ITS ---
Exam(s) US ABDOMEN EXAM: US ABDOMEN CLINICAL HISTORY: cysts in pancreas,abnl lft's,r94.5,k86.2 TECHNIQUE: Ultrasound abdomen performed using standard protocol. COMPARISON: CT ABD/PELVIS WO W CONTRAST from 09/06/2010 US US ABDOMEN from 03/11/2018 FINDINGS: LIVER: Normal size. Mildly increased echogenicity consistent with mild hepatic steatosis.. No focal liver lesions are seen.. GALLBLADDER: Stones were demonstrated on the previous ultrasound but were not seen on today's exam. No evidence of wall thickening. No pericholecystic fluid identified. DEAL'S SIGN: Negative. BILIARY SYSTEM: No intrahepatic or extrahepatic biliary ductal dilation. KIDNEYS: Kidneys are symmetric in size. No evidence of renal calculi. No evidence of hydronephrosis. Nine millimeter cyst left kidney.. PANCREAS: Normal where visualized. SPLEEN: Not enlarged. ABDOMINAL AORTA AND IVC: Visualized portions normal caliber. ASCITES: None seen. IMPRESSION: Mild hepatic steatosis. Cholelithiasis not demonstrated on today's exam. DATA REPOSITORY:
== END 2021-07-01 01:11 ==
PROVIDERS: PCP Family Medicine; Visit Provider Family Medicine
DX: K86.2 Cyst of pancreas (principal); K76.0 Fatty (change of) liver, not elsewhere classified; R94.5 Abnormal results of liver function studies; N28.1 Cyst of kidney, acquired
CPT/HCPCS: 76700

== ENCOUNTER 2021-08-08 03:00 | Outpatient (CLI) | payer MEDICARE, SELFPAY ==
[2021-08-08 12:18] LABS: Hemoglobin A1C 7.8 % (<5.7)
[2021-08-08 12:45] LABS: COMMENT (LAB VIEW ONLY) 31.47 mg/dL; Microalb ug/mg Crea 16.5 ug/mg Cr
[2021-08-08 12:46] LABS: ALT 26 U/L (14-59); AST 17 U/L (15-37); Albumin 4.2 g/dL (3.4-5.0); Alkaline Phosphatase 82 U/L (46-116); BUN 18 mg/dL (7-18); Bilirubin, Total 0.4 mg/dL (0.2-1.0); Calcium 9.5 mg/dL (8.5-10.1); Calculated LDL 113 mg/dL (<100); Chloride 100 mmol/L (98-107); Cholesterol 182 mg/dL (<200); Glucose 138 mg/dL (74-106); HDL Cholesterol 47 mg/dL (40-60); Potassium 4.1 mmol/L (3.5-5.1); Sodium 136 mmol/L (136-145); Total Protein 7.4 g/dL (6.4-8.2); Triglyceride 112 mg/dL (<150)
[2021-08-08 12:58] LABS: GGT 54 U/L (5-55)
== END 2021-08-08 03:01 | disposition home or self-care (01) ==
LOC: LBO 03:00
PROVIDERS: PCP Family Medicine; Visit Provider Family Medicine
DX: E11.9 Type 2 diabetes mellitus without complications (principal); R94.5 Abnormal results of liver function studies; I10 Essential (primary) hypertension
CPT/HCPCS: 36415; 80053; 80061; 82043; 82570; 82977; 83036

== ENCOUNTER 2021-08-23 00:30 | Outpatient (CLI) | payer MEDICARE, SELFPAY ==
--- NOTE | 2021-08-23 07:45 | DI.CT_ITS ---
Exam(s) CT ABDOMEN PELVIS WO EXAM: CT ABDOMEN PELVIS WO CLINICAL HISTORY: left flank pain x 5 days, assess for kidney stone,R10.9. TECHNIQUE: Imaging Protocol: Axial computed tomography images with coronal and sagittal reformatted images were created and reviewed. Oral: / no COMPARISON: CT ABD/PELVIS WO W CONTRAST from 09/06/2010 FINDINGS: ABDOMEN: Lung Bases: Normal where visualized. Liver: Normal density. No measurable mass. Gallbladder and biliary tract: No radiodense calculus or dilation. Pancreas: Normal density, no abnormal calcifications or inflammatory process. Spleen: Normal size. Smoothly marginated low-density lesions superiorly measuring 2 cm, likely cyst. . Kidneys: Normal size, contour and axis. No radiodense stones or obstructive uropathy. Three cysts lef t kidney. Adrenal glands: No masses seen. Lymph nodes: Within normal limits. Abdominal Aorta: Abdominal portion non-dilated. Moderate atherosclerotic changes. PELVIS: Bladder: Symmetric distention, no gross wall thickening. Bowel: No obstruction or bowel wall thickening. Appendix normal. Normal quantity of stool. Peritoneal cavity: No ascites, collection or mesenteric inflammatory response. Reproductive organs: Retroverted uterus. Within normal limits. Bones: Severe degenerative changes and scoliosis. IMPRESSION: Left renal cysts. No evidence of stones or hydronephrosis. No acute abnormality in the abdomen or p nithya. RADIATION DOSE DELIVERED: 978.66mGy.cm Total DLP DATA REPOSITORY: All CT scans at this facility are submitted to the National Radiology Data Registry (NRDR) Dose Index Registry (DIR) with the [employer] (ACR). RADIATION OPTIMIZATION: All CT scans at this facility use at least one of these dose optimization te chniques: automated exposure control; mA and/or kV adjustment per patient size (includes targeted exa ms where dose is matched to clinical indication); or iterative reconstruction.
== END 2021-08-23 00:50 ==
PROVIDERS: PCP Family Medicine; Visit Provider Nurse Practitioner Family
DX: R10.32 Left lower quadrant pain (principal); N28.1 Cyst of kidney, acquired
CPT/HCPCS: 74176

== ENCOUNTER → 2022-05-09 02:25 | Outpatient (CLI) | payer MEDICARE, SELFPAY ==
--- NOTE | 2022-05-09 07:45 | DI.RAD_ITS ---
Exam(s) XR KNEE LT 3V AP,LAT,JERONIMO EXAM: XR KNEE LT 3V AP,LAT,JERONIMO CLINICAL HISTORY: left knee AND LEG PAIN,M79.605,M25.562. TECHNIQUE: 2D digital imaging was performed of the left knee. Three images were obtained. AP, late ral and PA tunnel views were obtained. COMPARISON: None. FINDINGS: BONES: No acute fracture is present. No bony destructive lesion is seen. JOINTS: The knee is normally aligned. No joint effusion is seen. SOFT TISSUE: Normal. IMPRESSION: No acute abnormality. DATA REPOSITORY: RADIATION DOSE DELIVERED:
--- NOTE | 2022-05-09 07:45 | DI.RAD_ITS ---
Exam(s) XR HIP LT COMPLETE AP PELVIS EXAM: XR HIP LT COMPLETE AP PELVIS CLINICAL HISTORY: left leg and knee pain,M79.605,M25.562. TECHNIQUE: 2D digital imaging was performed of the left hip. Two views were obtained. AP pelvis an d lateral left hip views were obtained. COMPARISON: No exams were available for comparison FINDINGS: BONES: No acute fracture is present. No bony destructive lesion is seen. JOINTS: No dislocation present. There are moderate degenerative changes seen in the lower lumbar spin e. SOFT TISSUE: Normal. IMPRESSION: 1. No acute abnormality seen in the left hip. 2. Moderate degenerative changes seen in the lower lumbar spine. DATA REPOSITORY: RADIATION DOSE DELIVERED:
== END ==
PROVIDERS: PCP Family Medicine; Visit Provider Family Medicine
DX: M25.562 Pain in left knee (principal); M79.605 Pain in left leg; M47.816 Spondylosis without myelopathy or radiculopathy, lumbar region
CPT/HCPCS: 73562; 73502

== ENCOUNTER 2022-12-13 02:37 | Outpatient (CLI) | payer MEDICARE, SELFPAY ==
[2022-12-13 12:58] LABS: Hemoglobin A1C 6.5 % (<5.7)
[2022-12-13 13:17] LABS: COMMENT (LAB VIEW ONLY) 74.21 mg/dL; Microalb ug/mg Crea 8.2 ug/mg Cr
[2022-12-13 13:18] LABS: ALT 22 U/L (14-59); AST 19 U/L (15-37); Albumin 3.9 g/dL (3.4-5.0); Alkaline Phosphatase 75 U/L (46-116); Anion Gap 11.9 mmol/L (3-11); BUN 30 mg/dL (7-18); Bilirubin, Total 0.3 mg/dL (0.2-1.0); CO2 23.1 mmol/L (21.0-32.0); CREATININE 1.3 mg/dL (0.55-1.02); Calcium 9.5 mg/dL (8.5-10.1); Calculated LDL 111 mg/dL (<100); Chloride 103 mmol/L (98-107); Cholesterol 170 mg/dL (<200); Estimated GFR 44.79 (mL/min/1.73m2); Glucose 107 mg/dL (74-106); HDL Cholesterol 47 mg/dL (40-60); Potassium 4.4 mmol/L (3.5-5.1); Sodium 138 mmol/L (136-145); Total Protein 7.8 g/dL (6.4-8.2); Triglyceride 60 mg/dL (<150)
== END 2022-12-13 02:38 | disposition home or self-care (01) ==
LOC: LBO 02:37
PROVIDERS: PCP Family Medicine; Visit Provider Family Medicine
DX: E11.9 Type 2 diabetes mellitus without complications (principal); E78.5 Hyperlipidemia, unspecified; R94.5 Abnormal results of liver function studies; R74.8 Abnormal levels of other serum enzymes; I10 Essential (primary) hypertension
CPT/HCPCS: 36415; 80053; 80061; 82043; 82570; 83036

== ENCOUNTER → 2023-01-15 01:26 | Outpatient (CLI) | payer MEDICARE, SELFPAY ==
--- NOTE | 2023-01-15 06:45 | DI.MAMMO_ITS ---
Exam(s) MAMMO SCREENING EXAM: MAMMO SCREENING CLINICAL HISTORY: screening,Z12.39 TECHNIQUE: Mammograms were interpreted according to the usual protocol including computer analysis w Perosphere CAD system, tomosynthesis and C-view imaging. COMPARISON: 2015 through 2020 FINDINGS: The breasts are composed of mainly fatty density , Breast Density category A. No suspicious masses or suspicious microcalcifications are seen. No skin thickening or abnormal axillary lymph nodes are seen. There has been no significant change from prior exams. IMPRESSION: BI-RADS Category 1, Negative mammogram Yearly screening mammography is recommended. Breast Density - Category A, fatty density. A negative radiographic report should not delay biopsy if a dominant or clinically suspicious mass is present. Up to ten percent of cancers are not identified on mammography. A negative report may reinforce clinical impression. Adenosis and dense breasts may obscure an underlying neoplasm. False positive reports average 6 to 10%. Patient will receive a letter notifying them of these results.
== END ==
PROVIDERS: PCP Family Medicine; Visit Provider Family Medicine
DX: Z12.31 Encounter for screening mammogram for malignant neoplasm of breast (principal)
CPT/HCPCS: 77063; 77067

== ENCOUNTER 2023-05-22 04:51 | Outpatient (CLI) | payer MEDICARE, SELFPAY ==
[2023-05-22 09:34] LABS: Hemoglobin A1C 6.7 % (<5.7)
[2023-05-22 10:13] LABS: ALT 26 U/L (14-59); AST 19 U/L (15-37); Albumin 3.9 g/dL (3.4-5.0); Alkaline Phosphatase 65 U/L (46-116); Anion Gap 9.4 mmol/L (3-11); BUN 32 mg/dL (7-18); Bilirubin, Total 0.4 mg/dL (0.2-1.0); CO2 27.6 mmol/L (21.0-32.0); CREATININE 1.2 mg/dL (0.55-1.02); Calcium 9.8 mg/dL (8.5-10.1); Chloride 101 mmol/L (98-107); Estimated GFR 49.31 (mL/min/1.73m2); Glucose 150 mg/dL (74-106); Potassium 4.3 mmol/L (3.5-5.1); Sodium 138 mmol/L (136-145); Total Protein 7.7 g/dL (6.4-8.2)
== END 2023-05-22 04:52 | disposition home or self-care (01) ==
LOC: LBO 04:52
PROVIDERS: PCP Family Medicine; Visit Provider Family Medicine
DX: E11.9 Type 2 diabetes mellitus without complications (principal); N28.9 Disorder of kidney and ureter, unspecified
CPT/HCPCS: 36415; 80053; 83036

== ENCOUNTER 2024-01-16 03:53 | Outpatient (CLI) | payer MEDICARE, SELFPAY ==
[2024-01-16 16:00] LABS: ALT 27 U/L (14-59); AST 19 U/L (15-37); Albumin 3.9 g/dL (3.4-5.0); Alkaline Phosphatase 66 U/L (46-116); Anion Gap 10.4 mmol/L (3-11); BUN 26 mg/dL (7-18); CO2 26.6 mmol/L (21.0-32.0); CREATININE 1.5 mg/dL (0.55-1.02); Calcium 9.3 mg/dL (8.5-10.1); Calculated LDL 97 mg/dL (<100); Chloride 102 mmol/L (98-107); Cholesterol 183 mg/dL (<200); Estimated GFR 37.49 (mL/min/1.73m2); Glucose 131 mg/dL (74-106); HDL Cholesterol 45 mg/dL (40-60); Potassium 4.5 mmol/L (3.5-5.1); Sodium 139 mmol/L (136-145); Total Protein 6.7 g/dL (6.4-8.2); Triglyceride 209 mg/dL (<150)
[2024-01-17 11:47] LABS: Hemoglobin A1C 7.2 % (<5.7)
== END 2024-01-16 03:54 | disposition home or self-care (01) ==
LOC: LBO 03:54
PROVIDERS: PCP Family Medicine; Visit Provider Family Medicine
DX: I10 Essential (primary) hypertension (principal); E11.9 Type 2 diabetes mellitus without complications
CPT/HCPCS: 36415; 80053; 80061; 83036

== ENCOUNTER 2024-01-17 18:47 | Outpatient (REF) | payer MEDICARE, SELFPAY ==
[2024-01-17 22:09] LABS: COMMENT (LAB VIEW ONLY) 30.46 mg/dL; Microalb ug/mg Crea 38.7 ug/mg Cr
== END 2024-01-17 18:48 | disposition home or self-care (01) ==
LOC: LBN 18:47
PROVIDERS: PCP Family Medicine; Visit Provider Family Medicine
DX: E11.9 Type 2 diabetes mellitus without complications (principal); Z12.39 Encounter for other screening for malignant neoplasm of breast; N95.9 Unspecified menopausal and perimenopausal disorder; D12.6 Benign neoplasm of colon, unspecified
CPT/HCPCS: 82043; 82570

== ENCOUNTER 2024-02-21 02:10 | Outpatient (CLI) | payer MEDICARE, SELFPAY ==
--- NOTE | 2024-02-21 09:30 | DI.MAMMO_ITS ---
Exam(s) MAMMO SCREENING EXAM: MAMMO SCREENING CLINICAL HISTORY: screening,z12.39 TECHNIQUE: Mammograms were interpreted according to the usual protocol including computer analysis w OLED-T CAD system, tomosynthesis and C-view imaging. COMPARISON: 2015 through 2022 FINDINGS: The breasts are composed of mainly fatty density , Breast Density category A. No suspicious masses or suspicious microcalcifications are seen. No skin thickening or abnormal axillary lymph nodes are seen. There has been no significant change from prior exams. IMPRESSION: BI-RADS Category 1, Negative mammogram Yearly screening mammography is recommended. Breast Density - Category A, fatty density. A negative radiographic report should not delay biopsy if a dominant or clinically suspicious mass is present. Up to ten percent of cancers are not identified on mammography. A negative report may reinforce clinical impression. Adenosis and dense breasts may obscure an underlying neoplasm. False positive reports average 6 to 10%. Patient will receive a letter notifying them of these results.
--- NOTE | 2024-02-21 09:31 | DI.DEXA_ITS ---
Exam(s) XR DEXA BONE DENSITY W/WO KRISTIAN EXAM: XR DEXA BONE DENSITY W/WO KRISTIAN CLINICAL HISTORY: menopausal disorder,n95.9,screening for osteoporosis TECHNIQUE: Hologic Horizon C densitometer analysis of left hip, lumbar spine and left forearm. Lat eral survey image of the thoracic and lumbar spine. COMPARISON: CR XR LUMBAR SPINE COMPLETE from 07/09/2019 FINDINGS: Lateral view of the thoracic and lumbar spine shows no evidence of compression fractures. Scoliosi s and severe degenerative changes are noted. Bone mineral density measurements of the lumbar spine correspond to a total T-score of 3.7, in the n ormal range. The density measurements are likely elevated due to degenerative changes with sclerotic endplates. Bone mineral density measurements of the left hip correspond to a total T-score of 0.4. The femoral neck T-score is -0.8, in the normal range.. Theleft forearm bone mineral density measurements correspond to a T-score of the distal 3rd of -0.3, in the normal range.. IMPRESSION: Normal bone mineral density.
== END 2024-02-21 02:30 ==
LOC: DI 02:10
PROVIDERS: PCP Family Medicine; Visit Provider Family Medicine
DX: Z13.820 Encounter for screening for osteoporosis (principal); N95.9 Unspecified menopausal and perimenopausal disorder; Z12.31 Encounter for screening mammogram for malignant neoplasm of breast
CPT/HCPCS: 77063; 77067; 77080

== ENCOUNTER → 2024-05-01 10:21 | Outpatient (BNVA) | payer MEDICARE, SELFPAY | PROVIDERS: PCP Family Medicine; Referring Provider Family Medicine; Visit Provider Physical Therapy Assistant | DX: Z12.11 Encounter for screening for malignant neoplasm of colon (principal); Z86.0100 Personal history of colon polyps, unspecified; E11.9 Type 2 diabetes mellitus without complications; I10 Essential (primary) hypertension ==

== ENCOUNTER 2024-05-16 06:18 | Day surgery (SDC) | payer MEDICARE, SELFPAY ==
--- NOTE | 2024-05-15 17:07 | W.ANESPRE ---
General Info Date of Service Date Performed: 05/16/24 Height: 4 ft 11.75 in Weight: 78.471 kg Body Mass Index (BMI): 34.0 Surgical Procedure: Operation Date: 05/16/24 07:35 Proposed Procedure Side Surgeon eligio Mcintosh, DO Meds Allergies and Home Medications Allergies Allergy/AdvReac Type Severity Reaction Status Date / Time No Known Allergies Allergy Verified 05/16/24 06:31 Home Medication ?Medication ?Instructions ?Recorded multivitamin (Daily Multi-Vitamin 1 tab PO DAILY 09/11/13 tablet) thiamine mononitrate (vit B1) 100 1 tab PO DAILY 09/11/13 mg tablet (Vitamin B-1 (mononitrate)) Vitamin D3 2,000 unit PO DAILY 10/11/15 lorazepam 1 mg tablet See Rx Instructions PO BID PRN 03/02/23 agitation #30 tabs folic acid 1 mg tablet 1 mg PO DAILY #90 tab-caps 10/01/23 spironolactone 50 mg tablet 50 mg PO DAILY #90 tabs 12/14/23 atorvastatin 10 mg tablet 10 mg PO DAILY #90 tabs 01/17/24 losartan 100 mg tablet 100 mg PO DAILY #90 tabs 01/17/24 Current Visit Medications: Current Medications Generic Name Dose Route Start Last Admin Trade Name Freq PRN Reason Stop Dose Admin Ringer's Solution 1,000 mls @ 80 mls/hr 05/16/24 06:00 IV 05/16/24 23:59 INFUSION MARTIN IV Miscellaneous Supplies 1 each 05/16/24 06:00 Iv Access IV 05/16/24 23:59 DIRECTED MARTIN Sodium Chloride 0 ml 05/16/24 06:00 Normal Saline Flush 10 Ml Syr IV 05/16/24 23:59 PRN PRN Sodium Chloride 0 ml 05/16/24 06:00 Normal Saline 10 Ml Vial IJ 05/16/24 23:59 DIRECTED PRN Sterile Water 0 ml 05/16/24 06:00 Water,Injection,Sterile 10 Ml Vial IJ 05/16/24 23:59 DIRECTED PRN PFSH Active Problems Active Problems: Problem Status Onset Code Renal insufficiency Chronic N28.9 Left knee pain Acute M25.562 Left leg pain Acute M79.605 Hand pain, right Acute M79.641 Diabetes mellitus Chronic E11.9 Onychogryphosis Acute L60.2 Sessile colonic polyp Acute K63.5 Tubulovillous adenoma Acute D36.9 Pancreatic cyst Acute K86.2 Alcohol abuse, in remission Acute F10.11 Essential hypertension Acute Diabetes mellitus Acute Pain of left calf Acute M79.662 Annual physical exam Acute Z00.00 Increased body mass index Chronic R63.8 Hypertriglyceridemia Chronic 02/04/13 E78.1 Hyperlipidemia Chronic E78.5 Headache Chronic R51 Glaucoma Chronic H40.9 Elevated serum GGT level Chronic 07/20/15 R74.8 Elevated liver function tests Chronic 07/20/15 R94.5 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.9 Anxiety Chronic 07/08/15 F41.9 Adenoma of colon Chronic 11/06/17 D12.6 Essential hypertension Chronic 09/10/13 I10 Diabetes mellitus Chronic 07/20/15 E11.9 Medical History Medical History Alcohol induced acute pancreatitis Annual physical exam (08/14/17) Elevated ferritin (07/15/15) hemochromotosis tests negative Hemochromatosis (07/15/15) work up in progress History of tobacco use Quit 1988 History of tobacco use Right arm pain Surgical History Surgical History Cervical Conization/LEEP (~1979) section Colonoscopy - MAC (11/06/17) H/O section x2 History of section History of colonoscopy with polypectomy (~05/13/21) History of oophorectomy, unilateral right History of unilateral oophorectomy Oophrectomy, Right Status post LEEP (loop electrosurgical excision procedure) of cervix and cervical conization Status post LEEP (loop electrosurgical excision procedure) of cervix Tobacco Smoking/Tobacco Use Status: Former Tobacco Use Passive smoking exposure: No Second hand exposure: Yes Alcohol Alcohol Intake: former Substance Use Substance use: Never Substance use type: does not use Vital Signs and Lab Results Vital Signs Most Recent Vital Signs in EMR: Temp Pulse Resp BP Pulse Ox 36 C L 74 16 119/76 98 05/16/24 06:28 05/16/24 06:28 05/16/24 06:28 05/16/24 06:28 05/16/24 06:28 Lab Results Blood Type / Crossmatch: No Data to Display Complete Blood Count: No Data to Display Complete Metabolic Panel: No Data to Display Liver Function Panel: No Data to Display Coagulation Panel: No Data to Display Cardiac Panel: No Data to Display Arterial Blood Gas: No Data to Display Venous Blood Gas: No Data to Display Pancreas Panel: No Data to Display Thyroid Panel: No Data to Display Infectious Disease: No Data to Display Blood Cultures: No Data to Display Toxicology Panel: No Data to Display Imaging and Studies Imaging and Studies Study information below may be from another EMR and interpreted by another provider. Please see original notes in EMR for more complete details. Echocardiogram Summary: 2011: LVEF 68%, trace TR/MR. Anesthesia Assessment and Plan Anesthesia History Personal History: No History of Anesthesia Complications Family History: No Family History of Anesthesia Complications Exercise Tolerance Exercise Tolerance: Metabolic Equivalents>4 Cardiac & Pulmonary Exam Cardiac Exam: Normal S1/S2 Heart Sounds Pulmonary Exam: Clear Bilateral Breath Sounds Implantable Cardiac Device Does patient have a Pacemaker or an ICD?: No Airway Exam Known Difficult Airway: No Mallampati Class: 2 Mouth Opening: Normal (> 3cm) Thyromental Distance: Greater than 3 cm Neck Range of Motion: Full ROM Neck Circumference: Thick Teeth Condition: Normal Dentition ASA Classification ASA Score: ASA 2 Emergency Case?: No NPO Status NPO Status: NPO Clears >2 hours, Solids >8 hours Anesthesia Plan Resuscitation Status: Full Code Anesthesia Technique: General Anesthesia Airway Planned: Natural Airway Monitors Used: Standard Monitors Preoperative Comments:: 65 yo female with history of colon polyps for colonoscopy. Sig PMHx: DM (pre. Last A1c ~7, her daughters recently passed and she has not been watching her intake), anxiety (lorazapam), HTN (losartan/spironolactone), former smoker, former EtOH/substance use. ECHO: 2011, LVEF 68%, trace TR/MR. Previous Anes: - colo x 2, prop, natural airway, no issues.
--- NOTE | 2024-05-15 21:03 | W.COLOREPORT ---
Date of service: 05/16/24 Time of Service: 08:25 Colonoscopy Report Date of procedure: 05/16/24 Pre-op diagnosis general: villous adenoma Post-op diagnosis procedure note: other Surgeon: Julisa Mcintosh Anesthesia Type: General:No Airway Estimated blood loss (mL): 1 Pathology: other Complications: None Disposition: same day Prep: Miralax/Dulcolax Retraction Time: 13 Procedure Description: After informed consent was obtained, explaining risks of the procedure, including but not limits to: bleeding, infections, complications of anesthesia, perforations (which may require antibiotics and /or surgery and stay in the hospital), and abdominal pain/cramping. The patient was taken to the procedure room and placed in a left decubitous position. Monitors were applied and a time out was done. The patients name, date of , procedure, allergies to medications and metal in their body was reviewed. The patient was then sedated. Once sedated and comfortable a rectal exam was done. External exam was normal. Internal exam revealed a normal sphincter tone and no palpable masses. The previously lubricated Olympus scope was then introduced (see RN notes for scope number) and retrofelexed. No internal hemorrhoids were identified. The scope was then advanced to the cecum without difficulty. The TI and appendiceal orifice were identified. The scope was then slowly retracted over 13 minutes back into the rectum. Polyps: A flat, .5cm polyp was found at 20 cm. There is a 0.75 cm flat polyp in the rectum. This is removed with a hot snare. The specimen is retrieved and sent to pathology. There are 2 other 0.5 cm polyps that are fulgurated with a hot probe. There is no specimen for these 2 small polyps. There is no bleeding noted from the polypectomy site. Diverticula: pt had a moderate amount of small mouthed diverticula in the sigmoid colon. There were no signs of active bleeding or infection. The mucosa is pink and healthy w/ a normal vascular pattern. The scope was removed, and the patient was woken up and taken back to Same day surgery in stable condition. The patient tolerated the procedure well and there were no immediate complications. Follow up: The patient should follow up in 3-5 years, unless they develop changes in bowel habits or other new gastrointestinal complaints. [place] Bowel Prep [place] Bowel Prep Right Colon: 3 Left Colon: 3 Transverse Colon: 3 Total Score: 9
--- NOTE | 2024-05-15 21:04 | PDOC.DSDIS_ITS ---
Date of service: 05/16/24 Discharge Plan Disposition Patient Disposition: Home Discharge Details Reason For Visit: colonoscopy Attending Provider: Julisa Mcintosh Primary Care Provider: Nhi Sawant Home Meds and New Rx's Prescriptions: Continued atorvastatin 10 mg tablet 10 mg PO DAILY Qty: 90 4RF losartan 100 mg tablet 100 mg PO DAILY Qty: 90 6RF multivitamin [Daily Multi-Vitamin] 1 EACH tablet 1 tab PO DAILY thiamine mononitrate (vit B1) [Vitamin B-1 (mononitrate)] 100 MG tablet 1 tab PO DAILY VITAMIN D3 2,000 UNIT capsule 2,000 unit PO DAILY lorazepam 1 mg tablet See Rx Instructions PO BID MDD 2mg PRN (Reason: agitation) Qty: 30 2RF Rx Instructions: 0.5-1 mg orally twice a day PRN; folic acid 1 mg tablet 1 mg PO DAILY Qty: 90 5RF spironolactone 50 mg tablet 50 mg PO DAILY Qty: 90 4RF Discontinued bisacodyl [Dulcolax (bisacodyl)] 5 mg tablet,delayed release (DR/EC) 5 mg PO ONCE Qty: 4 0RF Rx Instructions: Take per colonoscopy instructions provided by ordering providers office polyethylene glycol 3350 17 gram/dose powder 17 g PO ONCE Qty: 238 0RF Rx Instructions: Take per colonoscopy instructions provided by ordering providers office Discharge Instructions Additional Instructions: DSU Colonoscopy Post- Op Instructions Instructions for Everyone who is given Anesthesia: For your safety, please do the following for the next twenty-four (24) hours: *Do Not operate a motor vehicle (car, truck, motorcycle, etc.) *Do Not drink alcoholic beverages or use any recreational drugs for the first 24 hours or while taking pain medications. The medications in your body may have a reaction that can be dangerous. *Do Not make any important decisions or sign any important papers. Findings: Adenomatous polyps Diverticula-make sure you are moving your bowels on regular basis and not straining. If you find you are having problems with constipation/straining to move your bowels, then it is recommended you start a fiber product daily such as Metamucil or Citrucel. Follow up: My office will send you a letter in 2 to 3 weeks time with the results of the pathology and when we want you to repeat your colonoscopy. Most likely 5 years time. 1. No lifting over 20 pounds or strenuous activity for the first 24 hours after your procedure. After 24 hours there are no restrictions on your activity but you may feel fatigued for a few days. 2. After you arrive home you may have a light meal and return to your normal diet as you can tolerate it without feeling sick to your stomach. 3. You may have a bloated, gaseous feeling in your belly (abdomen) after a c olonoscopy. Passing gas and belching will help. Walking or lying down on your left side with your knees flexed may relieve the discomfort. Call the office at [phone] (Office) or [phone] (Hospital) right away if you notice any of the following: a.Vomiting of blood or ?coffee ground stools?. b.Rectal bleeding 1Tbsp, blood clots or continuous bleeding. c.Severe belly (abdominal) pain. d.A hard distended belly (abdomen) and an inability to pass gas. 4. Please don?t expect to have a normal BM (bowel movement) for 2-3 days after your procedure. 5. If there are questions regarding the findings of your procedure, please contact your doctor 6. If you are unable to contact your doctor with a problem, contact the hospital at [phone]. 7. Continue all your regular medications unless directed otherwise. I understand the above instructions and have no questions. Signature of Patient or Adult Escort Name of Responsible Adult Escort Signature of Nurse Date/Time Stand Alone Forms: Colonoscopy Post Instructions, Holley Perez (DSU) Activity:: see above Diet:: see above Discharge Orders Discharge Orders: Discharge Order (Routine); Ordered 05/16/24 Ordered By: Julisa Mcintosh DS: Diagnosis Discharge Diagnosis (1) Essential hypertension: Status: Chronic (2) Diabetes mellitus: Status: Chronic (3) Increased body mass index: Status: Chronic (4) Adenoma of colon: Status: Chronic (5) Sessile colonic polyp: Status: Acute (6) Tubulovillous adenoma: Status: Acute Asessment and Plan: The patient is seen and examined after their colonoscopy.? The patient has been able to pass gas.? They are not having abdominal pain.? They have been able to tolerate liquids and a snack.? They do not have any nausea or vomiting.? They are not having any chest pain or shortness of breath.??? They are not having any rectal bleeding. Their vital signs have been stable-see nursing notes. We discussed findings during their colonoscopy, and any biopsies that were done/polyps that were removed. The patient will be sent a letter with any biopsy results, and when to repeat the colonoscopy.-see discharge instructions. Patient was given explicit instructions to follow-up regarding colonoscopy-refer to discharge instructions.? We reviewed resumption of medications. Patient verbalized understanding and discharged in stable and satisfactory condition- See nursing notes. (7) Diverticula of colon: Status: Acute
[2024-05-16 06:28] VITALS: BP 119/76; PULSE 74; RESP 16; TEMP 36; O2SAT 98
[2024-05-16 07:09] VITALS: BMI 34.0
[2024-05-16] MEDS: Normal Saline Flush 10 ML SYR IV (07:18)
--- NOTE | 2024-05-16 08:00 | BOWEL_PTH ---
PATIENT: Yareli Perez LOC: [facility] U#:[id number] AGE/SX: 68/F ROOM: RE05/16/[address]: Julisa Mcintosh : 1955 BED: DIS: 05/16/2024 SPEC #: [id number] RECD: 05/16/24 12:56 STATUS: SHIN REQ #: [id number] ROXIE: 05/16/24 08:[address]: Julisa Mcintosh DEPT: Surgical Specimen RECD BY: Tricia Briones ENTERED: 05/16/24 12:57 SP TYPE: Bowel OTHR DR: Nhi Sawant MD, DC Tissues: 1 - BIOPSY BOWEL 2 - BIOPSY BOWEL Procedures: GROSS AND MICRO LEVEL 4 Comments: [id number]
[2024-05-16 08:13] VITALS: BP 89/55; PULSE 70; RESP 12; TEMP 36; O2SAT 97
--- NOTE | 2024-05-16 08:21 | W.ANESPOSTOP ---
Postoperative Evaluation Date, Time and Location Date Performed: 05/16/24 Time Performed: 08:21 Patient Location: Day Surgery Unit Vital Signs Most Recent Imported Vital Signs: Most Recent Vital Signs Temp Pulse Resp BP Pulse Ox 36 C L 70 12 89/55 L 97 05/16/24 08:13 05/16/24 08:13 05/16/24 08:13 05/16/24 08:13 05/16/24 08:13 Pain Score Most Recent Pain Score: Most Recent Pain Score Pain Level 0 05/16/24 08:13 Assessment Mental Status: Awake (Alert & Oriented to Patient Baseline) Airway and Respiratory Function: Patent airway with normal (patient baseline) respiratory exam Cardiovascular Function: Hemodynamically Stable Hydration Status: Adequately Hydrated Nausea & Vomiting: No Nausea or Vomiting Pain: Pt. Denies Any Pain Peripheral Nerve Block: Patient did not receive a nerve block
[2024-05-16 08:40] VITALS: BP 103/61; PULSE 67; RESP 14; TEMP 36.1; O2SAT 99
== END 2024-05-16 09:12 | disposition home or self-care (01) ==
LOC: SUR 06:18
PROVIDERS: PCP Family Medicine; Visit Provider Surgery
PROC: 0DJD8ZZ Inspection of Lower Intestinal Tract, Via Natural or Artificial Opening Endoscopic (ICD-10-PCS; CPT 45378; principal; 2024-05-16 07:30)
DX: Z12.11 Encounter for screening for malignant neoplasm of colon (principal); I10 Essential (primary) hypertension; E11.9 Type 2 diabetes mellitus without complications; D37.5 Neoplasm of uncertain behavior of rectum; K57.30 Diverticulosis of large intestine without perforation or abscess without bleeding; K63.5 Polyp of colon
CPT/HCPCS: 45385; 45388; 88305; J2704

== ENCOUNTER 2024-11-11 02:16 | Outpatient (CLI) | payer MEDICARE, SELFPAY ==
[2024-11-11 16:30] LABS: Hemoglobin A1C 5.8 % (<5.7)
== END 2024-11-11 02:17 | disposition home or self-care (01) ==
PROVIDERS: PCP Family Medicine; Visit Provider Family Medicine
DX: E11.9 Type 2 diabetes mellitus without complications (principal)
CPT/HCPCS: 36415; 83036

== ENCOUNTER 2024-11-26 02:21 | Outpatient (CLI) | payer MEDICARE, SELFPAY ==
--- NOTE | 2024-11-26 07:30 | DI.RAD_ITS ---
Exam(s) XR LUMBAR SPINE COMPLETE EXAM: XR LUMBAR SPINE COMPLETE CLINICAL HISTORY: Low back pain and left left pain,m79.605. TECHNIQUE: 2D digital imaging was performed of the lumbar spine. Five images were obtained. AP, lateral, right oblique, left oblique and L5-S1 spot views were obtained. COMPARISON: CR XR LUMBAR SPINE COMPLETE from 07/09/2019 FINDINGS: BONES: No fracture or destructive lesion. Endplate osteophytes are seen at all levels of the lumbar spine, most marked at L2-L3, L4-L5 and L5-S1. Multilevel degenerative changes of the facets are seen. DISKS: There is disc space narrowing throughout the lumbar spine, most marked at L1-L2 through L3-L4. ALIGNMENT: There is a right convex lumbar scoliosis. No spondylolysis or spondylolisthesis. SOFT TISSUE: Atherosclerotic calcification is present. IMPRESSION: Moderately severe degenerative changes in the lumbar spine. DATA REPOSITORY: RADIATION DOSE DELIVERED:
== END 2024-11-26 02:41 ==
LOC: DI 02:21
PROVIDERS: PCP Family Medicine; Visit Provider Family Medicine
DX: M51.372 Other intervertebral disc degeneration, lumbosacral region with discogenic back pain and lower extremity pain (principal)
CPT/HCPCS: 72110

== ENCOUNTER 2025-02-27 01:08 | Outpatient (CLI) | payer MEDICARE, SELFPAY ==
[2025-02-27 08:02] LABS: Hemoglobin A1C 5.5 % (<5.7)
[2025-02-27 08:27] LABS: ALT 25 U/L (14-59); AST 23 U/L (15-37); Albumin 4.0 g/dL (3.4-5.0); Alkaline Phosphatase 61 U/L (46-116); Anion Gap 12.1 mmol/L (3-11); BUN 22 mg/dL (7-18); Bilirubin, Total 0.6 mg/dL (0.2-1.0); CO2 24.9 mmol/L (21.0-32.0); Calcium 10.3 mg/dL (8.5-10.1); Calculated LDL 91 mg/dL (<100); Chloride 103 mmol/L (98-107); Cholesterol 155 mg/dL (<200); Estimated GFR 54.06 (mL/min/1.73m2); Glucose 99 mg/dL (74-106); HDL Cholesterol 47 mg/dL (>or=50); Potassium 4.1 mmol/L (3.5-5.1); Sodium 140 mmol/L (136-145); Total Protein 7.4 g/dL (6.4-8.2); Triglyceride 89 mg/dL (<150)
[2025-02-27 08:31] LABS: COMMENT (LAB VIEW ONLY) 221.33 mg/dL; Microalb ug/mg Crea 4.7 ug/mg Cr
== END 2025-02-27 01:09 | disposition home or self-care (01) ==
LOC: LBO 01:08
PROVIDERS: PCP Family Medicine; Visit Provider Family Medicine
DX: E11.9 Type 2 diabetes mellitus without complications (principal); I10 Essential (primary) hypertension
CPT/HCPCS: 36415; 80053; 80061; 82043; 82570; 83036

== ENCOUNTER 2025-03-12 04:30 | Outpatient (CLI) | payer MEDICARE, SELFPAY ==
--- NOTE | 2025-03-12 06:15 | DI.MAMMO_ITS ---
Exam(s) MAMMO SCREENING EXAM: MAMMO SCREENING CLINICAL HISTORY: screening,z12.39. TECHNIQUE: Bilateral full field digital CC and MLO mammographic images were obtained with 3D tomosynthesis and utilizing computer aided detection (CAD). COMPARISON: Prior mammograms were reviewed. FINDINGS: There has been no significant change in the appearance and distribution of the fibroglandular tissue. Small benign-appearing nodules the left breast are unchanged from prior mammograms. There are no new spiculated masses nor malignant appearing microcalcification groups. There is no significant architectural distortion nor skin thickening-retraction. IMPRESSION: No radiographic evidence of malignancy. Stable benign findings. BI-RADS Category 2 - Benign Findings Breast Density - Category A - The breast are almost entirely fatty. Breast density Category C or D implies that the patient has dense breast tissue. Dense breast tissue can make it harder to find cancer on a mammogram. Dense breast tissue is also associated with an increased risk of breast cancer. This information about the result of the mammogram report was provided to the patient to raise their awareness. Use this report when you speak with the patient about their risks for breast cancer, which includes their family history. At that time, you may recommend additional screening tests (Ultrasound or MRI) as these tests may add significant information. A negative radiographic report should not delay biopsy if a dominant or clinically suspicious mass is present. Up to ten percent of cancers are not identified on mammography. A negative report may reinforce clinical impression. Adenosis and dense breasts may obscure an underlying neoplasm. False positive reports average 6 to 10%. Patient will receive a letter notifying them of these results.
== END 2025-03-12 04:50 ==
PROVIDERS: PCP Family Medicine; Visit Provider Family Medicine
DX: Z12.31 Encounter for screening mammogram for malignant neoplasm of breast (principal); R92.323 Mammographic fibroglandular density, bilateral breasts
CPT/HCPCS: 77063; 77067